=== PATIENT | male | born 1965 | race Native Hawaiian/Other Pacific Islander ===

== ENCOUNTER 2018-01-20 17:16 | Outpatient (CLI) | payer BC ==
[2018-01-20 17:23] LABS: PLATELET COUNT 327 K/uL (142-355)
[2018-01-20 17:57] LABS: POTASSIUM 4.4 mmol/L (3.6-5.2)
== END 2018-01-20 19:17 | disposition home or self-care (01) ==
LOC: LAB 17:16
PROVIDERS: Internal Medicine
DX: Z00.00 Encounter for general adult medical examination without abnormal findings (principal); E78.00 Pure hypercholesterolemia, unspecified
CPT/HCPCS: 36415; 80053; 80061; 81000; 84153; 84443; 85027